=== PATIENT | female | born 1985 | race Caucasian/White ===

== ENCOUNTER 2016-12-08 03:44 | Emergency (ER) | payer OTHER ==
[~2016-12-08] VITALS: Ht 162.6 cm; Wt 97.5 kg
[~2016-12-08 03:44] MED LIST: ALBU8.5H5 INH; HYDR-906 PO; IBUP-1542 PO; PEN500 PO
[2016-12-08 03:55] VITALS: Ht 162.6 cm; Wt 97.5 kg
[2016-12-08] MEDS ORDERED: SOD CHLORIDE 0.9% 1,000 ML IV STA (04:31)
[2016-12-08] MEDS ORDERED: PROCHLORPERAZINE 10 MG INJ IV ONE (05:00)
[2016-12-08 05:05] LABS: URINE BLOOD (Dip) POC Trace-lysed (NEGATIVE)
[2016-12-08] MEDS ORDERED: TETRACAINE 0.5% 15 ML OPH ONE (05:29)
[2016-12-08] MEDS ORDERED: TETRACAINE 0.5% 15 ML OPH LEFT EYE ONE (05:30)
[2016-12-08] MEDS ORDERED: FIORICET PO (05:59)
[2016-12-08 06:05] VITALS: BP 109/58; PULSE 69; RESP 20; TEMP 97.4
--- NOTE | 2016-12-08 06:24 | ERD ---
ER Documentation Chief Complaint Date/Time DATE: 12/08/16 TIME: 06:21 Chief Complaint headache x 4 days, w/ pain behind left eye HPI 31-year-old female with no significant past medical history presents the ED complaining of a headache that started 4 days ago. Reports that the pain occurs behind the left side of her eye. States that she has had a previous episodes of migraine. States that she did see the eye doctor 3 days ago and received glasses at that time. Reports that the headache is in the temporal region and is a shooting type of pain. Denies any fever, chills, neck stiffness , neck pain, abdominal pain, nausea, vomiting, diarrhea. ROS All systems reviewed and are negative except as per history of present illness. Medications Home Meds Active Scripts Acetamin/Butalbital/Caffeine* (Fioricet*) [id number] Tab, 1 TAB PO Q6H Y for PAIN, #30 TAB Prov:ANTONIO FONG PA-C 12/08/16 Ibuprofen* (Motrin*) 600 Mg Tab, 600 MG PO Q6, #30 TAB Prov:EDGARD BLACKBURN 11/01/16 Hydrocodone/Acetaminophen ([place] 5-325 Tablet) 1 Each Tablet, 1 TAB PO Q6H Y for PAIN, #20 TAB Prov:EDGARD BLACKBURN 11/01/16 Ibuprofen* (Motrin*) 600 Mg Tab, 600 MG PO Q6H Y for PAIN AND OR ELEVATED TEMP, #30 TAB Prov:LAUREL VALLADARES NP 10/30/16 Penicillin V Potassium* (Penicillin V K*) 500 Mg Tab, 500 MG PO QID for 10 Days , TAB Prov:LAUREL VALLADARES NP 10/30/16 Albuterol Sulfate* (Albuterol Sulfate* HFA) 8.5 Gm Hfa.aer.ad, 1-2 PUFF INH Q4 Y for SHORTNESS OF BREATH, #1 EA Prov:ORALIA DOMÍNGUEZ PA-C 07/21/15 Allergies Allergies: Coded Allergies: No Known Drug Allergies (Verified Allergy, Unknown, 12/08/16) PMhx/Soc History of Surgery: No Anesthesia Reaction: No Hx Neurological Disorder: No Hx Respiratory Disorders: No Hx Cardiac Disorders: No Hx Psychiatric Problems: No Hx Miscellaneous Medical Probl: Yes (fibroids) Hx Alcohol Use: No Hx Substance Use: No Hx Tobacco Use: No Smoking Status: Never smoker Physical Exam Vitals Vital Signs Date Time Temp Pulse Resp B/P Pulse Ox O2 Delivery O2 Flow Rate FiO2 12/08/16 06:05 97.4 69 20 109/58 99 Room Air 12/08/16 03:55 97.2 77 20 146/82 98 Physical Exam Const: [id number], well-nourished. In no acute distress. Head: Atraumatic, normocephalic Eyes: Normal Conjunctiva without injection. No purulent discharge. PERRLA. EOMI ENT: Normal external ear. Ear canal without erythema. Tympanic membrane pearly alvarado without effusion or bulging. Nasal canal clear with normal turbinates. Moist oropharynx without tonsillar exudates. Non-erythematous pharynx. Uvula midline. No drooling. No trismus. Neck: No cervical midline tenderness. Full range of motion. No meningismus. No cervical lymphadenopathy. No JVD. Resp: Clear to auscultation bilaterally. No wheezing, rhonchi, rales, or crackles. No accessory muscle use. No retractions. Cardio: Regular rate and rhythm. No murmurs, rubs or gallops. Abd: Soft, non tender, non distended. Normal bowel sounds. No palpable masses. No rebound tenderness. No guarding. Negative McBurney's Point. Negative Joe's Sign. Skin: Normal skin turgor. No petechiae or rashes Back: No midline tenderness. No CVA tenderness. Ext: No cyanosis, or edema. Distal pulses intact bilaterally. Neur: Awake and alert. Normal gait. Normal coordination. Cranial Nerves II- VII intact. Normal finger to nose. Muscle strength 5/5. Sensation intact. Psych: Normal Mood and Affect Results 24 hrs Laboratory Tests Test 12/08/16 05:06 Bedside Urine Blood Trace-lysed Bedside Urine Glucose (UA) Negative Bedside Urine Ketones (LAB) Negative Bedside Urine Leukocyte Esterase (L Trace Bedside Urine Nitrite (LAB) Negative Bedside Urine Protein (LAB) Negative Bedside Urine pH (LAB) 5.5 Current Medications Medications (Trade) Dose Ordered Sig/Yaniv Route PRN Reason Start Time Stop Time Status Last Admin Dose Admin Sodium Chloride (NS) 1,000 ml @ 1,000 mls/hr Q1H STAT IV 12/08/16 04:31 12/08/16 05:30 DC 12/08/16 04:47 Prochlorperazine (Compazine Inj) 10 mg ONCE ONCE IV 12/08/16 05:00 12/08/16 05:01 DC 12/08/16 04:58 Tetracaine HCl (Tetracaine 0.5% Oph) 1 drop ONCE ONCE LEFT EYE 12/08/16 05:30 12/08/16 05:31 DC Tetracaine HCl (Tetracaine 0.5% Oph) 60 drop STK-MED ONCE .ROUTE 12/08/16 05:29 12/08/16 05:30 DC Procedures/MDM 31-year-old female with no significant past medical history presents the ED complaining of a headache that started 4 days ago that is a shooting type of pain. Patient is afebrile and nontoxic-appearing. Patient has normal vital signs. Patient was treated here in the ED with 1 L of normal saline, Compazine with improvement of her pain. Low suspicion for intracranial bleed, subarachnoid hemorrhage, subdural hematoma , epidural hematoma, TIA, meningitis, or other emergent conditions. Low suspicion for ruptured globe, retinal detachment, acute angle closure glaucoma, deep space infection, iritis, traumatic hyphema, conjunctivitis, subconjunctival hemorrhage, corneal abrasion, infectious keratitis, corneal ulcer, pterygium, superficial keratitis, hypopyon, blepharitis, episcleritis, hordeolum, chalazion, or other emergent conditions. Plan for 24 hour ophthalmologic follow up. Discharge medications: Fioricet Follow up with primary care physician in 1-2 days. Instructed patient to return to the ED sooner for any worsening symptoms. Patient's questions were answered. Patient understood and agreed with discharge plan. Patient discharged stable. Departure Diagnosis: Primary Impression: Headache Condition: Stable Patient Instructions: Headache, Unspecified Referrals: [facility] YOU HAVE RECEIVED A MEDICAL SCREENING EXAM AND THE RESULTS INDICATE THAT YOU DO NOT HAVE A CONDITION THAT REQUIRES URGENT TREATMENT IN THE EMERGENCY DEPARTMENT. FURTHER EVALUATION AND TREATMENT OF YOUR CONDITION CAN WAIT UNTIL YOU ARE SEEN IN YOUR DOCTORS OFFICE WITHIN THE NEXT 1-2 DAYS. IT IS YOUR RESPONSIBILITY TO MAKE AN APPOINTMENT FOR FOLOW-UP CARE. IF YOU HAVE A PRIMARY DOCTOR --you should call your primary doctor and schedule an appointment IF YOU DO NOT HAVE A PRIMARY DOCTOR YOU CAN CALL OUR PHYSICIAN REFERRAL HOTLINE AT IF YOU CAN NOT AFFORD TO SEE A PHYSICIAN YOU CAN CHOSE FROM THE FOLLOWING [facility] [address] [place] [facility] [address] [place] [facility] [place] [address] [facility] [address] [facility] [address] [facility]. [facility] [address] [facility] [facility] YOU HAVE RECEIVED A MEDICAL SCREENING EXAM AND THE RESULTS INDICATE THAT YOU DO NOT HAVE A CONDITION THAT REQUIRES URGENT TREATMENT IN THE EMERGENCY DEPARTMENT. FURTHER EVALUATION AND TREATMENT OF YOUR CONDITION CAN WAIT UNTIL YOU ARE SEEN IN YOUR DOCTORS OFFICE WITHIN THE NEXT 1-2 DAYS. IT IS YOUR RESPONSIBILITY TO MAKE AN APPOINTMENT FOR FOLOW-UP CARE. IF YOU HAVE A PRIMARY DOCTOR --you should call your primary doctor and schedule and appointment IF YOU DO NOT HAVE A PRIMARY DOCTOR YOU CAN CALL OUR PHYSICIAN REFERRAL HOTLINE AT . IF YOU CAN NOT AFFORD TO SEE A PHYSICIAN YOU CAN CHOSE FROM THE FOLLOWING [facility] [address] [place] [address] [facility] [address] [place] [address] [facility] [address] [place] [address] [facility] Hours: Mon - Fri 9:00 AM - 5:00 PM Additional Instructions: FOLLOW UP WITH YOUR PRIMARY CARE PHYSICIAN TOMORROW.Return to this facility if you are not improving as expected. ANTONIO FONG PA-C Dec 08, 2016 06:24
== END 2016-12-08 06:20 | disposition home or self-care (01) ==
LOC: FTE 03:44
DX: R51 Headache (principal)
CPT/HCPCS: 81003; 96374; J0780; J7030; Z7502; Z7610